=== PATIENT | female | born 1960 | race Two or more races ===

== ENCOUNTER 2019-02-08 22:45 | Emergency (ER) | payer OTHER ==
[~2019-02-08] VITALS: Ht 152.4 cm; Wt 77.3 kg
[2019-02-08] MEDS ORDERED: DICL250C70 PO (23:01)
[2019-02-08] MEDS ORDERED: HYDR-643 PO (23:01)
[2019-02-09 01:41] VITALS: BP 131/65
== END 2019-02-09 03:15 | disposition left against medical advice (07) ==
LOC: M ED 22:45
DX: Z53.21 Procedure and treatment not carried out due to patient leaving prior to being seen by health care provider (principal)